=== PATIENT | female | born 1995 | race African-American/Black ===

== ENCOUNTER 2017-01-22 23:30 | Emergency (ER) | payer OTHER ==
[~2017-01-22] VITALS: Ht 170.2 cm; Wt 80.1 kg
[~2017-01-22 23:30] MED LIST: HOME1TAB55; IBUP-103 PO
[2017-01-22 23:40] VITALS: TEMP 36.8; Ht 170.2 cm; Wt 80.1 kg
[2017-01-22] MEDS ORDERED: ACETAMINOPHEN 500 MG TAB PO STA (23:51)
--- NOTE | 2017-01-23 00:22 | EMERGENCY ROOM VISIT NOTE ---
History Report prepared by Abelino: eRnate Sommer Under the Supervision of: Dr. Aldair Maharaj M.D. First contact with patient: 23:49 Chief Complaint: BACK PAIN Stated Complaint: NO MENSES, INTENSE SHOULDER/BACK PAIN, HEAVY CRAMP History of Present Illness The patient is a 21 year old black female with no significant past medical history who presents to the ED with a cc of persistent left upper back pain beginning a couple days ago. Positive missed period, abdominal cramping, urinary frequency. Negative vaginal bleeding, nausea, vomiting, pain with urination. She denies any recent trauma, fall, or exercise. The patient was sent to the ED by the [facility] advice nurse. She took several tests and one showed a faint line. The rest were negative. LNMP was 1 month and 1 week ago. She is supposed to have gotten her period 1 week ago. She has never been before. She is sexually active and has not been using control. She denies any alcohol, tobacco, or drug use. She notes that she is stressed with school. Source of History: patient Onset: couple days ago Position: back (left upper) Quality: other (pain) Timing: other (persistent) Associated Symptoms: + abdominal pain, + urinary symptoms, No nausea, No vomiting Note: Pt reports missed period, urinary frequency. Pt denies burning with urination, vaginal bleeding. Review of Systems See HPI for pertinent positives and negatives. A total of ten systems were reviewed and were otherwise negative. Past Medical & Surgical Medical Problems: (1) No chronic problems Family History No pertinent family history stated. Social History Smoking Status: Never Smoker Alcohol Use: none Drug Use: none Marital Status: in relationship Occupation Status: [employer] student Current/Historical Medications No Active Prescriptions or Reported Meds Allergies Coded Allergies: No Known Allergies (Unverified , 01/23/17) Physical Exam Vital Signs Date Time Temp Pulse Resp B/P (MAP) Pulse Ox O2 Delivery O2 Flow Rate FiO2 01/22/17 23:40 36.8 91 20 131/70 98 Room Air Physical Exam GENERAL: Awake, alert, well-appearing, NAD HENT: Normocephalic, atraumatic. EYES: Normal conjunctiva. Sclera non-icteric. NECK: Supple. No nuchal rigidity. FROM. RESPIRATORY: CTAB, no rhonchi, wheezing, crackles CARDIAC: RRR, no MRG ABDOMEN: Soft, NTND, BS+ MSK: Reproducible TTP left and lateral to the thoracic spine adjacent to the scapula. Mildly reproducible with motion of the LUE. No lumbar TTP. No pain with internal or external rotation of the leg. Negative SLR bilaterally. Negative Cristian test. NEURO: GCS 15, CN 2-12 intact, moves all 4s on command SKIN: No rash or jaundice noted. Medical Decision & Procedures Laboratory Results Test 01/22/17 23:50 01/23/17 00:10 Urine Color YELLOW Urine Appearance CLEAR (CLEAR) Urine pH 5.0 (4.5-7.5) Urine Specific [place] 1.018 (1.000-1.030) Urine Protein NEG (NEG) Urine Glucose (UA) NEG (NEG) Urine Ketones NEG (NEG) Urine Occult Blood NEG (NEG) Urine Nitrite NEG (NEG) Urine Bilirubin NEG (NEG) Urine Urobilinogen NEG (NEG) Urine Leukocyte Esterase NEG (NEG) Urine WBC (Auto) 1-5 /hpf (0-5) Urine RBC (Auto) 0-4 /hpf (0-4) Urine Hyaline Casts (Auto) 0 /lpf (0-5) Urine Epithelial Cells (Auto) >30 /lpf (0-5) Urine Bacteria (Auto) NEG (NEG) Laboratory results reviewed by me Medications Administered Medications (Trade) Dose Ordered Sig/Castro Route Start Time Stop Time Status Last Admin Dose Admin Acetaminophen (Tylenol Tab) 1,000 mg NOW STAT PO 01/22/17 23:51 01/22/17 23:52 DC 01/23/17 00:06 1,000 MG ED Course 2355: The patient was evaluated in room B4B. A complete history and physical exam was performed. Medical Decision The patient is a 21 year old black female with no significant past medical history who presents to the ED with a cc of persistent left upper back pain beginning a couple days ago. Differential diagnosis: Etiologies such as musculoskeletal, disc herniation, fracture, aortic disease, metastatic disease, cord compression, discitis, infection, renal colic, gastrointestinal, acute exacerbation of chronic back pain, sciatica, cauda equina, , amenorrhea as well as others were entertained. Patient was seen and evaluated the bedside. Patient is an anxious appearing 21- year-old with no past medical history of presents with some back pain and concern that she has had a missed period. Patient's back pain in his left and lateral and thoracic spine. Appears to be scapular type discomfort and it is related to movement of her left upper extremity. Patient denies any recent trauma. Patient is neuro intact distally. Patient has no lower back pain and no saddle anesthesia no bowel or bladder incontinence or retention. She is neurovascularly intact distally. Patient does not have any other high risk red flag signs concerning for low back pain. Patient did have a urinalysis as well as urine test and a beta hCG sent. Patient's urinalysis negative for infection. UPT negative. Patient hCG also negative. Patient was informed of all findings. Patient was told to establish follow-up within [facility] physician. Patient was also told take Motrin Tylenol [id number] for the next several days. Patient was agreeable to this plan of care. Patient was deemed suitable for outpatient follow-up and treatment. Patient was also told she may want to discuss things like OCPs which may help regulate her periods. Her amenorrhea may be related to increased stress related to week. Patient was given strict follow-up, discharge, and return precautions. All questions were answered. Patient was deemed suitable for outpatient follow-up at this time. Patient agreed with the plan of care and was safely discharged home. Medication Reconcilliation Current Medication List: was personally reviewed by me Blood Pressure Screening Patient's blood pressure: Elevated blood pressure Blood pressure disposition: Elevated BP felt to be situational Impression Primary Impression: Pain of left scapula Additional Impressions: Muscular pain Amenorrhea Scribe Attestation The scribe's documentation has been prepared under my direction and personally reviewed by me in its entirety. I confirm that the note above accurately reflects all work, treatment, procedures, and medical decision making performed by me. Departure Information Dispostion Home / Self-Care Prescriptions No Active Prescriptions or Reported Meds Referrals No Doctor, Assigned (PCP) [facility] Patient Instructions ED Amenorrhea, ED Muscle Aching, [facility] Additional Instructions Please return to the emergency department if you have worsening or recurrent symptoms not amenable to at-home treatment. Please call for a follow-up appointment with her primary care physician. Please take your medications as prescribed. If you have other concerns and/or complaints please feel free to also call your primary care physician's office or return the ED for further evaluation, management, and treatment. You may take 600 mg Ibuprofen every 6 hours as needed for pain with food for no more than 2 consecutive days. You may take tylenol 1000 mg every 6 hours as needed for pain. You may take motrin and tylenol separately or at the same time. As we discussed please consider establishing with an [facility] physician when he returns home for break. Take your medications as prescribed. You have been examined and treated today on an emergency basis only. This is not a substitute for, or an effort to provide, complete comprehensive medical care. It is impossible to recognize and treat all injuries or illnesses in a single emergency department visit. It is therefore important that you follow up closely with [facility], your PCP, and/or your specialist(s). Call as soon as possible for an appointment. Thank you for your time and consideration. I look forward to speaking with you again soon. Please don't hesitate to call us if you have any questions. Problem Qualifiers
[2017-01-23 00:31] LABS: URINE APPEARANCE CLEAR (CLEAR); URINE BILIRUBIN NEG (NEG); URINE COLOR YELLOW; URINE EPITHELIAL CELL AUTO >30 /lpf (0-5); URINE NITRITE NEG (NEG); URINE SPECIFIC GRAVITY 1.018 (1.000-1.030); UROBILINOGEN NEG (NEG); ZZUR CULT IF INDIC CLEAN CATCH NO
[2017-01-23 00:33] LABS: MANUAL MICROSCOPIC REQUIRED? NO; REVIEW REQ? NO
[2017-01-23 01:21] VITALS: BP 131/81; PULSE 82; O2SAT 99
== END 2017-01-23 00:38 | disposition home or self-care (01) ==
LOC: C.EDB 23:32
DX: M25.512 Pain in left shoulder (principal); M79.1 Myalgia; N91.2 Amenorrhea, unspecified; R03.0 Elevated blood-pressure reading, without diagnosis of hypertension